=== PATIENT | female | born 1965 | race Caucasian/White ===

== ENCOUNTER 2024-01-15 13:39 | Inpatient (IN) | payer MEDICARE, OTHER ==
[~2024-01-15] VITALS: Ht 167.6 cm; Wt 139.8 kg
[2024-01-15] MEDS ORDERED: FentaNYL Citrate 50 MCG/ML 2 ML Injection IV ONE (14:30)
[2024-01-15 14:37] LABS: BASOPHILS ABSOLUTE AUTO 0.08 K/mm3 (0.00-0.23); BASOPHILS PERCENT AUTO 1 % (0-2); EOSINOPHILS PERCENT AUTO 2 % (0-6); Hematocrit 48.5 % (33.0-51.0); Hemoglobin 16.3 g/dL (11.5-16.0); IMMATURE GRAN ABSOLUTE AUTO 0.04 K/mm3 (0.00-0.10); IMMATURE GRAN PERCENT AUTO 0 % (0-1); LYMPHOCYTES ABSOLUTE AUTO 2.67 K/mm3 (0.84-5.20); LYMPHOCYTES PERCENT AUTO 26 % (21-46); MONOCYTES ABSOLUTE AUTO 0.56 K/mm3 (0.16-1.47); MONOCYTES PERCENT AUTO 6 % (4-13); Mean Corpuscular HGB 28.9 pg (26.0-34.0); Mean Corpuscular HGB Conc 33.6 g/dL (31.5-36.5); Mean Corpuscular Volume 86 fL (80-100); Mean Platelet Volume 10.1 fL (9.1-12.4); NEUTROPHILS ABSOLUTE AUTO 6.66 K/mm3 (1.96-9.15); NEUTROPHILS PERCENT AUTO 65 % (41-73); Platelet Count 294 K/mm3 (150-400); RDW Coefficient Variation 12.9 % (11.7-14.2); RDW Standard Deviation 40.2 fL (35.1-46.3); Red Blood Cell Count 5.64 M/mm3 (3.80-5.20); White Blood Cell Count 10.21 K/mm3 (4.00-11.30)
[2024-01-15 14:42] LABS: Albumin, Blood 3.8 g/dL (3.4-5.0); Albumin/Globulin Ratio 0.9 (0.8-1.8); Bilirubin, Total 0.7 mg/dL (0.1-1.0); Bun/Creatinine Ratio 8.7 (12.0-20.0); Creatinine, Blood 1.49 mg/dL (0.40-1.00); Globulin, Blood 4.2 g/dL (2.2-4.0); Potassium, Blood 4.2 mmol/L (3.5-5.5)
[2024-01-15] MEDS ORDERED: Aspirin 325 MG Tab PO ONE (15:10)
[2024-01-15] MEDS ORDERED: OxyCODONE HCL 5 MG TAB PO ONE (15:20)
[2024-01-15] MEDS ORDERED: Dose Adjust by Pharmacy XX STA ×2 (16:05→23:55)
[2024-01-15] MEDS ORDERED: Heparin Sodium,Porcine/0.5 NS 500 ML IV SCH (16:10)
[2024-01-15] MEDS ORDERED: Heparin Sodium 5000 Units/ML 1ML MDV IV ONE (16:10)
[2024-01-15 16:13] LABS: Anti-Xa UFH, PHA Monitoring <0.10 IU/mL; International Normalized Ratio 1.02; Prothrombin Time Results 10.9 Sec (9.7-11.5)
[2024-01-15] MEDS ORDERED: FLU VACC TS2024-25(6MOS UP)/PF 45 MCG/0.5 ML SYRINGE IM SCH (16:25)
[2024-01-15] MEDS ORDERED: OxyCODONE HCL 5 MG TAB PO PRN (16:30)
[2024-01-15] MEDS ORDERED: Tiotropium Bromide 2.5 MCG/ACT MIST INHAL (10 ACT/4 GM) INH SCH (16:30)
[2024-01-15] MEDS ORDERED: Acetaminophen 325 MG TABLET PO PRN (16:30)
[2024-01-15] MEDS ORDERED: Lactated Ringer's 1,000 ML IV SCH (16:35)
[2024-01-15] MEDS ORDERED: HYDROmorphone HCl/Pf 1MG SYR IV PRN (16:35)
[2024-01-15] MEDS ORDERED: Mometasone/Formoterol MDI 200/5 mcg 13 GM INH SCH (16:40)
[2024-01-15] MEDS ORDERED: Lidocaine 4% 1 Patch TOP SCH (17:00)
[2024-01-15] MEDS ORDERED: Lactated Ringer's 1,000 ML IV ONE (17:02)
[2024-01-15 18:14] VITALS: BP 134/79
--- NOTE | 2024-01-15 19:33 | NUR ---
received pt from er a/o vss with minimal c/o pain. heparin infusing to right hand IV. pt states she is a very difficult stick and doesnt want to be stuck multiple time. I will see about Powerglide placement tomorrow.
[2024-01-15 19:41] VITALS: BP 153/94
[2024-01-15] MEDS ORDERED: CloNIDine 0.1 MG Tab PO SCH (21:00)
[2024-01-15] MEDS ORDERED: BusPIRone HCl 10 MG Tab PO SCH (21:00)
--- NOTE | 2024-01-16 04:38 | NUR ---
SHIFT SUMMARY PT ALERT ORIENTED ABLE TO VERBALIZE NEEDS GETS UP AD FIDEL IN ROOM. C/O PAIN TO LT FOOT MEDICATED WITH DILAUDID AND OXYCODONE WITH GOOD RELIEF. VSS ON RA SATTING AT 95%. SHE DID HAVE A INCRESED BP AT BEGINNING OF SHIFT AT 153/94 BUT SHE TOOK HER CLONIDINE. SHE CONTINUES ON HEPARIN. HER DOSE WAS CHANGED AT 0010 TO 17U/KG/HR OR 29.9ML/HR. SHE WILL HAVE HER HEPARIN RECHECKED BY LAB AT 0630. HER LT 4 TOES REMAIN BLACK BUT COLOR IS DECREASING. SHES DO TO HAVE A ANGIO WITH IR ON WEDNESDAY. SHES SLEEPING IN BED AT THIS TIME WITH CALL LIGHT IN REACH
[2024-01-16 04:57] VITALS: BP 159/92
[2024-01-16] MEDS ORDERED: Ondansetron HCl 2 MG / ML 2ML Vial IV PRN (06:55)
[2024-01-16 07:25] LABS: BASOPHILS ABSOLUTE AUTO 0.07 K/mm3 (0.00-0.23); BASOPHILS PERCENT AUTO 1 % (0-2); EOSINOPHILS ABSOLUTE AUTO 0.43 K/mm3 (0.00-0.68); EOSINOPHILS PERCENT AUTO 5 % (0-6); Hematocrit 43.4 % (33.0-51.0); Hemoglobin 14.4 g/dL (11.5-16.0); IMMATURE GRAN ABSOLUTE AUTO 0.03 K/mm3 (0.00-0.10); IMMATURE GRAN PERCENT AUTO 0 % (0-1); LYMPHOCYTES ABSOLUTE AUTO 4.06 K/mm3 (0.84-5.20); LYMPHOCYTES PERCENT AUTO 48 % (21-46); MONOCYTES ABSOLUTE AUTO 0.53 K/mm3 (0.16-1.47); MONOCYTES PERCENT AUTO 6 % (4-13); Mean Corpuscular HGB 29.4 pg (26.0-34.0); Mean Corpuscular HGB Conc 33.2 g/dL (31.5-36.5); Mean Corpuscular Volume 89 fL (80-100); Mean Platelet Volume 10.3 fL (9.1-12.4); NEUTROPHILS ABSOLUTE AUTO 3.41 K/mm3 (1.96-9.15); NEUTROPHILS PERCENT AUTO 40 % (41-73); Platelet Count 215 K/mm3 (150-400); RDW Standard Deviation 42.2 fL (35.1-46.3); White Blood Cell Count 8.53 K/mm3 (4.00-11.30)
[2024-01-16 07:31] VITALS: BP 153/108
[2024-01-16 07:44] LABS: Albumin, Blood 3.3 g/dL (3.4-5.0); Albumin/Globulin Ratio 0.9 (0.8-1.8); Bilirubin, Total 0.5 mg/dL (0.1-1.0); Bun/Creatinine Ratio 11.2 (12.0-20.0); Calcium, Blood 9.4 mg/dL (8.5-10.1); Creatinine, Blood 1.7 mg/dL (0.40-1.00); Globulin, Blood 3.7 g/dL (2.2-4.0); Potassium, Blood 3.7 mmol/L (3.5-5.5)
[2024-01-16] MEDS ORDERED: DULoxetine HCL 30 MG Cap DR PO SCH (09:00)
[2024-01-16] MEDS ORDERED: Diltiazem HCl 180 MG Cap.CD PO SCH (09:00)
[2024-01-16 09:55] VITALS: BP 137/86
[2024-01-16] MEDS ORDERED: Heparin Sodium 5000 Units/ML 1ML MDV IV ONE (15:10)
[2024-01-16 15:11] VITALS: BP 109/53
[2024-01-16 16:25] VITALS: BP 142/86
[2024-01-16 17:32] LABS: Source, Urine Clean Catch
[2024-01-16 17:36] LABS: Bilirubin, Urine Neg (Neg); Blood, Urine 1+ (Neg); Glucose Qualitative, Urine Neg (Neg); Ketones, Urine Neg (Neg); Leukocyte Esterase, Urine 1+ (Neg); Nitrite, Urine Neg (Neg); Protein, Urine 4+ (Neg); Specific Gravity, Urine 1.025 (1.003-1.022); Urobilinogen, Urine NORM (Normal)
[2024-01-16 17:42] LABS: Appearance, Urine Hazy (Clear); Color, Urine Yellow (P-Yellow)
[2024-01-16 17:43] LABS: Red Blood Cells, Urine 0-2 /hpf (0-2); White Blood Cells, Urine 0-2 /hpf (0-5)
[2024-01-16 17:44] LABS: Bacteria Many /hpf; Hyaline Casts 0-2 /lpf (0-2); Squamous Epithelial Cells Few /hpf (Few)
[2024-01-16] MEDS ORDERED: Nicotine 21 MG PATCH TOP SCH (18:00)
[2024-01-16] MEDS ORDERED: ClonazePAM 0.5 MG Tab PO PRN (19:10)
--- NOTE | 2024-01-16 19:45 | NUR ---
SHIFT SUMMARY- PT ALERT AND ORIENTED, 1PA WITH AMBULATION OR TRANSFERS. HEPARIN DRIP INFUSING PER EMAR. PT IN BED AT THE TIME OF BEDSIDE REPORT, NIGHT RN POINTED OUT TO THE PT THE HOSPITAL IS A NO SMOKING CAMPUS AND PT ARE NOT ALLOWED TO GO OUT AND SMOKE. THE PT BECAME VERY ANXIOUS AND LASHED OUTVERBALLY AT THE RN STATING SHE WILL "LEAVE THIS PLACE" AND SHE WILL NOT STAND FOR BEING "THREATENED." SHE WAS FURIOUS AND SHAKING (NICOTIENE PATCH ALREADY IN PLACE) PT GRABBED HER PHONE AND SAID I'LL CALL MY FOR MY CLONAZEPAM NOW. THIS RN CLARIFIED THE ORDER SHE TAKES AND CALLED DR BELCHER. EXPLAINED THE ANXIETY THE PT IS HAVING AND THE MED SHE HAS A Hx OF FILLING AT THE PHARMACY. (PER THE MED CLAIM Hx) RECIEVED AN ORDER FOR THE MED AND PLACED IN ORDER MANAGEMENT. ONCE VERIFIED, SPOKE TO THE PT. SHE APPOLOGIZED FOR THE MISCOMMUNICATION AND STATES SHE DOES NOT NEED THE MEDICATION AT THIS TIME. PRN IS AVAILABLE IF NEEDED LATER. PT SITTING UP IN BED, SMILING AND VISITING WITH THE NIGHT RN. NO CURRENT S&S OF DISTRESS NOTED.
[2024-01-16 20:27] VITALS: BP 160/79
[2024-01-17 01:39] VITALS: BP 147/77
[2024-01-17 03:54] LABS: BASOPHILS ABSOLUTE AUTO 0.05 K/mm3 (0.00-0.23); BASOPHILS PERCENT AUTO 1 % (0-2); EOSINOPHILS ABSOLUTE AUTO 0.36 K/mm3 (0.00-0.68); EOSINOPHILS PERCENT AUTO 5 % (0-6); Hematocrit 37.2 % (33.0-51.0); IMMATURE GRAN ABSOLUTE AUTO 0.01 K/mm3 (0.00-0.10); IMMATURE GRAN PERCENT AUTO 0 % (0-1); LYMPHOCYTES ABSOLUTE AUTO 3.25 K/mm3 (0.84-5.20); LYMPHOCYTES PERCENT AUTO 45 % (21-46); MONOCYTES ABSOLUTE AUTO 0.44 K/mm3 (0.16-1.47); MONOCYTES PERCENT AUTO 6 % (4-13); Mean Corpuscular HGB 29.3 pg (26.0-34.0); Mean Corpuscular HGB Conc 32.3 g/dL (31.5-36.5); Mean Corpuscular Volume 91 fL (80-100); Mean Platelet Volume 10.5 fL (9.1-12.4); NEUTROPHILS ABSOLUTE AUTO 3.06 K/mm3 (1.96-9.15); NEUTROPHILS PERCENT AUTO 43 % (41-73); Platelet Count 171 K/mm3 (150-400); RDW Coefficient Variation 12.9 % (11.7-14.2); RDW Standard Deviation 42.6 fL (35.1-46.3); Red Blood Cell Count 4.09 M/mm3 (3.80-5.20); White Blood Cell Count 7.17 K/mm3 (4.00-11.30)
[2024-01-17 04:24] LABS: Anion Gap 9 mmol/L (3-11); Blood Urea Nitrogen 33 mg/dL (8-24); Bun/Creatinine Ratio 13.6 (12.0-20.0); CO2, Blood 26 mmol/L (21-32); Calcium, Blood 8.8 mg/dL (8.5-10.1); Chloride, Blood 107 mmol/L (98-108); Creatinine, Blood 2.43 mg/dL (0.40-1.00); Glomerular Filtration Rate 23 (60-); Glucose, Blood 95 mg/dL (70-99); Phosphorus, Blood 6.6 mg/dL (2.5-4.9); Potassium, Blood 4.3 mmol/L (3.5-5.5); Sodium, Blood 138 mmol/L (136-145)
[2024-01-17] MEDS ORDERED: Dose Adjust by Pharmacy XX STA (04:51)
[2024-01-17 07:30] VITALS: BP 147/64
--- NOTE | 2024-01-17 08:18 | NUR ---
NOTE: SP0KE WITH DR. BELCHER, OKAY TO GIVE ALL OF PT'S AM MEDICATIONS PENDING ANGIOGRAM TODAY. PT IS NPO FOR THE PROCEDURE.
[2024-01-17] MEDS ORDERED: Sevelamer Carbonate 800 MG Tab PO SCH (08:30)
--- NOTE | 2024-01-17 11:16 | NUR ---
NOTE: NOTIFIED BY [facility] PT IS NOT TO HAVE ANGIOGRAM TODAY DUE TO CREATININE LEVEL. PT NOTIFIED, [facility] STATED OKAY TO EAT. FOOD PROVIDED.
[2024-01-17] MEDS ORDERED: NS 1,000 ML IV SCH (14:00)
[2024-01-17] MEDS ORDERED: DILT30 PO (15:10)
[2024-01-17 15:12] VITALS: BP 118/72
[2024-01-17] MEDS ORDERED: ALBU90OI INH (15:26)
[2024-01-17] MEDS ORDERED: METO50ER PO (15:27)
[2024-01-17] MEDS ORDERED: CLON.5 PO (15:28)
[2024-01-17] MEDS ORDERED: Buspirone HCl15 MG PO (15:29)
[2024-01-17] MEDS ORDERED: WIXELA 500-501 EAC1 INH (15:29)
[2024-01-17] MEDS ORDERED: CATAPRES0.1 MG PO (15:29)
[2024-01-17] MEDS ORDERED: LOSA50 PO (15:30)
[2024-01-17] MEDS ORDERED: PRAM.125 PO (15:32)
[2024-01-17] MEDS ORDERED: Desyrel150 MG PO (15:32)
[2024-01-17] MEDS ORDERED: OMEP20ER PO (15:32)
--- NOTE | 2024-01-17 18:06 | NUR ---
SHIFT SUMMARY PT AOX4, INDEPENDENT IN THE ROOM. NO CHANGES TO HEPARIN DRIP THIS SHIFT. PT CALLS AND MAKES HER NEEDS KNOWN. MEDICATED FOR PAIN, NAUSEA, AND ANXIETY PER THE EMAR. NEPHROLOGY CONSULTED THIS SHIFT. ANGIOGRAM DELAYED DUE TO PT'S CREATININE LEVEL. WILL RECHECK THIS EVENIN. PT REPOSITIONS SELF IN BED. CALL LIGHT WITHIN REACH, BED LOCKED AND IN THE LOWEST POSITION. WILL REPORT TO ONCOMING NURSE.
[2024-01-17 19:06] VITALS: BP 133/76
[2024-01-17 19:26] LABS: Albumin, Blood 3.1 g/dL (3.4-5.0); Bilirubin, Total 0.2 mg/dL (0.1-1.0); Bun/Creatinine Ratio 13.2 (12.0-20.0); Calcium, Blood 8.8 mg/dL (8.5-10.1); Creatinine, Blood 2.28 mg/dL (0.40-1.00); Globulin, Blood 3.2 g/dL (2.2-4.0); Potassium, Blood 4.2 mmol/L (3.5-5.5); Total Protein, Blood 6.3 g/dL (6.4-8.2)
[2024-01-17] MEDS ORDERED: N-Acetylcysteine 600 MG CAP PO SCH (21:00)
[2024-01-18 01:23] VITALS: BP 125/74
[2024-01-18 03:17] LABS: BASOPHILS ABSOLUTE AUTO 0.06 K/mm3 (0.00-0.23); BASOPHILS PERCENT AUTO 1 % (0-2); EOSINOPHILS ABSOLUTE AUTO 0.37 K/mm3 (0.00-0.68); EOSINOPHILS PERCENT AUTO 5 % (0-6); Hematocrit 34.9 % (33.0-51.0); Hemoglobin 11.3 g/dL (11.5-16.0); IMMATURE GRAN ABSOLUTE AUTO 0.02 K/mm3 (0.00-0.10); IMMATURE GRAN PERCENT AUTO 0 % (0-1); LYMPHOCYTES ABSOLUTE AUTO 2.71 K/mm3 (0.84-5.20); LYMPHOCYTES PERCENT AUTO 37 % (21-46); MONOCYTES ABSOLUTE AUTO 0.49 K/mm3 (0.16-1.47); MONOCYTES PERCENT AUTO 7 % (4-13); Mean Corpuscular HGB 29.5 pg (26.0-34.0); Mean Corpuscular HGB Conc 32.4 g/dL (31.5-36.5); Mean Corpuscular Volume 91 fL (80-100); Mean Platelet Volume 10.1 fL (9.1-12.4); NEUTROPHILS ABSOLUTE AUTO 3.76 K/mm3 (1.96-9.15); NEUTROPHILS PERCENT AUTO 51 % (41-73); Platelet Count 167 K/mm3 (150-400); RDW Coefficient Variation 13.2 % (11.7-14.2); RDW Standard Deviation 43.6 fL (35.1-46.3); Red Blood Cell Count 3.83 M/mm3 (3.80-5.20); White Blood Cell Count 7.41 K/mm3 (4.00-11.30)
[2024-01-18 03:36] LABS: Albumin, Blood 3.1 g/dL (3.4-5.0); Anion Gap 11 mmol/L (3-11); Blood Urea Nitrogen 33 mg/dL (8-24); Bun/Creatinine Ratio 13.4 (12.0-20.0); CO2, Blood 24 mmol/L (21-32); Calcium, Blood 8.4 mg/dL (8.5-10.1); Chloride, Blood 107 mmol/L (98-108); Creatinine, Blood 2.47 mg/dL (0.40-1.00); Glomerular Filtration Rate 22 (60-); Glucose, Blood 89 mg/dL (70-99); Magnesium, Blood 1.8 mg/dL (1.6-2.4); Phosphorus, Blood 5.4 mg/dL (2.5-4.9); Potassium, Blood 4.5 mmol/L (3.5-5.5); Sodium, Blood 137 mmol/L (136-145)
[2024-01-18] MEDS ORDERED: Dose Adjust by Pharmacy XX STA (04:12)
--- NOTE | 2024-01-18 05:12 | NUR ---
SHIFT SUMMARY. PATIENT IS A&OX4. PATIENT CALLS APPROPRIATELY AND IS ABLE TO MAKE HER NEEDS KNOWN. PATIENT INDEPENDENT TO THE BATHROOM. PATIENTS LEFT FOOT ELEVATED T/O NIGHT. PATIENT IS ABLE TO REPOSITION SELF IN BED. PATIENT C/O PAIN-MEDICATED FOR PAIN PER ORDERS-SEE EMAR. PATIENT POSSIBLE ANGIO DONE TODAY PENDING LABS. BED IS LOCKED IN THE LOWEST POSITION c CALL LIGHT IN REACH. CARE IS ONGOING.
[2024-01-18] MEDS ORDERED: NS 1,000 ML IV SCH (05:30)
--- NOTE | 2024-01-18 06:30 | NUR ---
IN AT BEDSIDE-ORDERED FOR STAT CREATININE TO BE DONE AT NOON AND RESULTS CALLED BACK TO BY 1PM. DR. KILPATRICK CHANGED PATIENTS DIET FROM RENAL TO REGULAR.
[2024-01-18 07:10] VITALS: BP 117/80
[2024-01-18] MEDS ORDERED: Polyethylene Glycol 3350 17 gm PO PRN (10:15)
[2024-01-18 13:57] VITALS: BP 114/57
[2024-01-18] MEDS ORDERED: CYMBALTA60 M1 PO (15:59)
[2024-01-18] MEDS ORDERED: ALPR.25 PO (16:08)
--- NOTE | 2024-01-18 17:55 | NUR ---
SHIFT SUMMARY PT AOX4, INDEPENDENT IN THE ROOM. HEPARIN DRIP AND NS INFUSING. NO CHANGES TO HEPARIN DRIP THIS SHIFT. PT CALLS AND MAKES HER NEEDS KNOWN. MEDICATED FOR NAUSEA AND PAIN PER THE EMAR. NO ANGIOGRAM TODAY DUE TO ELEVATED CREATININE LEVEL, DR. KILPATRICK IS CONSULTING. PT REPOSITIONS SELF IN BED. NO ACUTE ISSUES THIS SHIFT. CALL LIGHT WITHIN REACH, BED LOCKED AND IN THE LOWEST POSITION. WILL REPORT TO ONCOMING NURSE.
[2024-01-18 19:47] VITALS: BP 97/50
[2024-01-18] MEDS ORDERED: Arginine/Glutamine/Calcium Hmb 1 Packet PO SCH (21:00)
[2024-01-19] VITALS (9 sets, daily range): BP systolic 105–177; BP diastolic 55–114
[2024-01-19 05:28] LABS: Hematocrit 34.8 % (33.0-51.0)
[2024-01-19 05:52] LABS: Albumin, Blood 3.1 g/dL (3.4-5.0); Anion Gap 10 mmol/L (3-11); Blood Urea Nitrogen 37 mg/dL (8-24); Bun/Creatinine Ratio 16.6 (12.0-20.0); CO2, Blood 23 mmol/L (21-32); Chloride, Blood 109 mmol/L (98-108); Creatinine, Blood 2.23 mg/dL (0.40-1.00); Glomerular Filtration Rate 25 (60-); Glucose, Blood 83 mg/dL (70-99); Magnesium, Blood 2.3 mg/dL (1.6-2.4); Phosphorus, Blood 5.1 mg/dL (2.5-4.9); Potassium, Blood 4.9 mmol/L (3.5-5.5); Sodium, Blood 137 mmol/L (136-145)
--- NOTE | 2024-01-19 06:08 | NUR ---
SHIFT SUMMARY. NO ACUTE CHANGES NOTED THIS SHIFT. PATIENT IS A&OX4 AND INDEPENDENT IN ROOM. PATIENT CALLS APPROPRIATELY AND IS ABLE TO MAKE HER NEEDS KNOWN. PATIENT C/O PAIN AND NAUSEA THIS SHIFT-MEDICATED PER ORDERS; SEE EMAR. PATIENT ABLE TO GET SOME REST THIS SHIFT. DR. KILPATRICK CONSULTED AND IS TRENDING PATIENTS RENAL FUNCTION. PATIENT IS PENDING AN ANGIOGRAM D/T INCREASED CREATININE LEVELS-PATIENT WILL NEED CLEARED FROM NEPHROLOGY PRIOR TO TEST. BED IS LOCKED IN THE LOWEST POSITION WITH CALL LIGHT IN REACH. CARE IS ONGOING.
[2024-01-19] MEDS ORDERED: NS 250 ML IV ONE (08:34)
[2024-01-19] MEDS ORDERED: NS 100 ML IV ONE ×2 (08:34→11:53)
[2024-01-19] MEDS ORDERED: Heparin Sodium 1000 Units/ML 10ML MDV ONE ×2 (08:38→10:01)
[2024-01-19] MEDS ORDERED: Metoclopramide HCl 5MG / ML 2ML Vial IV ONE (09:35)
[2024-01-19] MEDS ORDERED: FentaNYL Citrate 50 MCG/ML 2 ML Injection ONE ×2 (09:46→10:16)
[2024-01-19] MEDS ORDERED: NS 1,000 ML IV ONE (09:46)
[2024-01-19] MEDS ORDERED: Midazolam HCl 1MG / ML 2ML Vial ONE ×4 (09:46→11:27)
--- NOTE | 2024-01-19 10:04 | NUR ---
PATEINT TO SURGERY, TO BE ADMITTED TO A DOFFERENT ROOM FOR POST CARE, IN ROOM WIAIT FOR PATIENT
[2024-01-19] MEDS ORDERED: HydrALAZINE HCl 20 MG / ML 1ML Vial ONE (11:41)
[2024-01-19] MEDS ORDERED: NS 500 ML IV ONE (12:06)
[2024-01-19] MEDS ORDERED: Labetalol HCL 5 MG/ML 4ML Injection (Single Dose) ONE (12:27)
[2024-01-19] MEDS ORDERED: Protamine Sulfate 50 MG Amp ONE (12:31)
[2024-01-19] MEDS ORDERED: Clopidogrel Bisulfate 300 MG Cap PO STA (13:06)
[2024-01-19] MEDS ORDERED: Aspirin 325 MG Tab ONE (13:21)
[2024-01-19] MEDS ORDERED: Clopidogrel Bisulfate 300 MG Cap ONE (13:21)
--- NOTE | 2024-01-19 17:20 | NUR ---
PATIENT TRANSFERRED TO ROOM PCU 15, BEDSIDE REPORT TO BELT PICKER
--- NOTE | 2024-01-19 18:44 | NUR ---
SHIFT NOTE PT RECOVERED WELL. NO OOZING OR HEMATOMAS NOTED AT GROIN SITES. L TOES STILL DUSKY AND PAINFUL. PT ABLE TO AMBULATE TO BATHROOM. AT BEDSIDE AND UPDATED ON PLAN OF CARE
[2024-01-20] VITALS (8 sets, daily range): BP systolic 123–160; BP diastolic 64–83
[2024-01-20 05:32] LABS: Hematocrit 34.2 % (33.0-51.0); Mean Corpuscular HGB 28.9 pg (26.0-34.0); Mean Corpuscular HGB Conc 32.2 g/dL (31.5-36.5); Mean Corpuscular Volume 90 fL (80-100); Mean Platelet Volume 10.5 fL (9.1-12.4); Platelet Count 173 K/mm3 (150-400); RDW Coefficient Variation 13.5 % (11.7-14.2); RDW Standard Deviation 44.6 fL (35.1-46.3); White Blood Cell Count 7.94 K/mm3 (4.00-11.30)
[2024-01-20 06:00] LABS: Albumin, Blood 2.9 g/dL (3.4-5.0); Anion Gap 11 mmol/L (3-11); Blood Urea Nitrogen 28 mg/dL (8-24); Bun/Creatinine Ratio 16.5 (12.0-20.0); CO2, Blood 22 mmol/L (21-32); Calcium, Blood 9.5 mg/dL (8.5-10.1); Chloride, Blood 113 mmol/L (98-108); Glomerular Filtration Rate 35 (60-); Glucose, Blood 95 mg/dL (70-99); Magnesium, Blood 2.2 mg/dL (1.6-2.4); Phosphorus, Blood 3.2 mg/dL (2.5-4.9); Potassium, Blood 4.5 mmol/L (3.5-5.5); Sodium, Blood 141 mmol/L (136-145)
--- NOTE | 2024-01-20 06:11 | NUR ---
SHIFT SUMMARY PATIENT ALERT AND ORIENTED X4, INDEPENDENT TO THE RESTROOM. BOTH GROIN SITES ARE FREE OF SWELLING AND BRUSING. PATIENT MEDICATED PER EMAR FOR PAIN OF THE LEFT 4TH TOE. ON ROOM AIR WITH SPO2 >90%. VITAL SIGNS STABLE, SINUS RYTHM ON TELE. NO ACUTE ISSUES NOTED OVERNIGHT. WILL CONTINUE TO MONITOR. CALL LIGHTI WITHIN REACH.
[2024-01-20] MEDS ORDERED: Aspirin 81 MG Chew PO SCH (09:00)
[2024-01-20] MEDS ORDERED: Clopidogrel Bisulfate 75 MG Tab PO SCH (09:00)
[2024-01-20] MEDS ORDERED: NS 1,000 ML IV SCH (14:10)
--- NOTE | 2024-01-20 17:14 | NUR ---
Shift Summary Pt alert, oriented x4; calm and cooperative with care. Pt resting in bed for majority of shift, up sba in room, up to bathroom. Pt reports pain to left foot/toes, medicated per emar. Pt denies chest pain/pressure, sob, nausea, dizziness and numb/tingling. This am tele sinus, bp elevated. Spo2 >90% on ra, breathing even and unlabored. Abd soft, nontender, +bt t/o. Strong pulse to left foot, 4th toe continue to be purple and painful, other toes pink. Other vss. No other acute changes noted. Will continue to monitor.
--- NOTE | 2024-01-20 23:46 | NUR ---
ASSUMPTION OF CARE AND TRANSFER NOTE ASSUMED CARE OF PT AT 1900. PT IS A/OX4. HEART SOUNDS REGULAR. LUNG SOUNDS CLEAR. PT ON RA. PT REPORTS KNOWN DESATURATION WHEN SLEEPING DUE TO HX OF PULM FIBROSIS. PT IS A 1P SBA WITH WALKER. PT REPORTS PAIN IN L FOURTH TOE. TOE IS PUPLE IN COLOR. PODIATRY SAW PT AT SHIFT CHANGE. PT TOLD THIS NURSE HE THOUGHT HER TOE WOULD BE OK BUT THE TIP MIGHT FALL OFF. PT MEDICATED FOR PAIN PER EMAR. REPORT GIVEN TO AMNA WISE. PT TOLERATED MOVE WELL. TRANSFERED VIA WHEELCHAIR.
--- NOTE | 2024-01-21 00:52 | NUR ---
PT TRANSFERRED FROM PACU TO ROOM 342. PT ARRIVED IN A W/C. ALERT ORIENTED X 4. C/O ANXIETY MEDICATED WITH KLONOPIN C/O LT FOOT PAIN MEDICATED WITH OXY WITH GOOD PAIN RELIEF.SKIN CHECK DONE WITH AMNA HER LT 4TH TOE REMAINS PURPLE IN COLOR NO OTHER SKIN CONCERNS. VSS ON RA. REQUIRES 1 PERSON SBA FOR TRANSFERS. REMAINS ON NS AT 100. PT WAS ORIENTED TO ROOM AND STAFF. SHES RESTING IN BED AT THIS TIME WITH CALL LIGHT IN REACH
[2024-01-21 02:56] VITALS: BP 119/69
--- NOTE | 2024-01-21 03:54 | NUR ---
SHIFT SUMMARY PT WAS TRANSFERRED TO HERE FROM PCU LAST NIGHT. ALERT ORIENTED X 4 REQUIRES SBA TO GET UP TO THE BATHROOM. C/O LT FOOT PAIN MEDICATED WITH OXY AND DILAUDID WITH GOOD PAIN RELIEF. SHE HAS A POWER GLIDE TO HER LT UPPER ARM WITH NS AT 50. THERES A CONSULT IN FOR BRUCE FOR HER LT 1ST TOE. HER LT 1ST AND 4TH TOE REMAINS DARKENED BUT THE COLOR IS GETTING BETTER. SHE HAS GOOD PEDAL PULSES TO BILATERAL FEET. SHES DUE TO HAVE LABS DONE THIS AM. SHES RESTING IN BED AT THIS TIME WITH CALL LIGHT IN REACH
[2024-01-21 06:07] LABS: Hematocrit 30.4 % (33.0-51.0); Hemoglobin 9.7 g/dL (11.5-16.0)
--- NOTE | 2024-01-21 06:10 | NUR ---
Dr. Fairbanks came in to see the pt and stated that he wants to see her in the office next wednesday at 2pm.he also gave orders to stop the iv fluids and stop the aranesp
[2024-01-21 06:40] LABS: Albumin, Blood 2.8 g/dL (3.4-5.0); Anion Gap 10 mmol/L (3-11); Blood Urea Nitrogen 25 mg/dL (8-24); Bun/Creatinine Ratio 15.5 (12.0-20.0); CO2, Blood 24 mmol/L (21-32); Calcium, Blood 8.9 mg/dL (8.5-10.1); Chloride, Blood 111 mmol/L (98-108); Creatinine, Blood 1.61 mg/dL (0.40-1.00); Glomerular Filtration Rate 37 (60-); Glucose, Blood 98 mg/dL (70-99); Phosphorus, Blood 3.8 mg/dL (2.5-4.9); Potassium, Blood 4.2 mmol/L (3.5-5.5); Sodium, Blood 141 mmol/L (136-145)
[2024-01-21 07:36] VITALS: BP 113/101
[2024-01-21 07:39] VITALS: BP 138/81
[2024-01-21] MEDS ORDERED: JUVEN PACKET1 EAC3 PO (11:35)
[2024-01-21] MEDS ORDERED: Aspir 8181 MG PO (11:35)
[2024-01-21] MEDS ORDERED: CLOP75 PO (11:36)
[2024-01-21] MEDS ORDERED: LIDOCAINE1 EAC1 TOP (11:36)
[2024-01-21] MEDS ORDERED: MIRALAX17 GM PO (11:36)
[2024-01-21] MEDS ORDERED: PANT20 PO (11:37)
[2024-01-21] MEDS ORDERED: Percocet 5-3251 EACH PO (11:37)
[2024-01-21] MEDS ORDERED: TIOT18 INH (11:37)
--- NOTE | 2024-01-21 18:28 | NUR ---
DISCHARGE SUMMARY: PT DISCHARGED HOME TODAY. PT EDUCATED ON DISCHARGE PLAN, MEDICATIONS AND FOLLOW-UP INSTRUCTIONS WITH PROVIDERS. PT V/U. SPOUSE IN ROOM AND ASSISTED PT WITH GETTING DRESSED. PT/SPOUSE PACKED UP BELONGINGS. PT GIVEN LIST OF LOCAL PROVIDERS TO ESTABLISH CARE WITH. PT SENT WITH SOME WOUND CARE SUPPLIES, GAUZE AND WOUND CLEANSER TO CLEANSE LEFT TOES. PT ESCORTED TO PO WITH HER BELONGING.
== END 2024-01-21 12:17 | disposition home or self-care (01) | DRG 279 ==
LOC: ER 13:39 → MEDS 16:22 → PCU 16:22 → MEDS 17:39 → PCU 01-19 13:30 → MEDS 01-20 23:33 → ENPENDDIS 01-21 10:06 → MEDS 01-21 12:17
PROVIDERS: Emergency Medicine; Internal Medicine; Internal Medicine Nephrology; Student in an Organized Health Care Education/Training Program; ADMIT Family Medicine
PROC: 04FD3ZZ Fragmentation of Left Common Iliac Artery, Percutaneous Approach (ICD-10-PCS; principal; 2024-01-19)
PROC: 04FJ3ZZ Fragmentation of Left External Iliac Artery, Percutaneous Approach (ICD-10-PCS; 2024-01-19)
PROC: 047J3DZ Dilation of Left External Iliac Artery with Intraluminal Device, Percutaneous Approach (ICD-10-PCS; 2024-01-19)
PROC: 047D3DZ Dilation of Left Common Iliac Artery with Intraluminal Device, Percutaneous Approach (ICD-10-PCS; 2024-01-19)
PROC: B41G1ZZ Fluoroscopy of Left Lower Extremity Arteries using Low Osmolar Contrast (ICD-10-PCS; 2024-01-19)
DX: I70.262 Atherosclerosis of native arteries of extremities with gangrene, left leg (principal); I13.0 Hypertensive heart and chronic kidney disease with heart failure and stage 1 through stage 4 chronic kidney disease, or unspecified chronic kidney disease; N17.9 Acute kidney failure, unspecified; J44.9 Chronic obstructive pulmonary disease, unspecified; J84.10 Pulmonary fibrosis, unspecified; F41.9 Anxiety disorder, unspecified; K21.9 Gastro-esophageal reflux disease without esophagitis; G25.81 Restless legs syndrome; I50.9 Heart failure, unspecified; N18.9 Chronic kidney disease, unspecified; Z79.899 Other long term (current) drug therapy; Z88.8 Allergy status to other drugs, medicaments and biological substances; E83.39 Other disorders of phosphorus metabolism; E88.09 Other disorders of plasma-protein metabolism, not elsewhere classified
CPT/HCPCS: 36415; 74176; 76770; 76937; 80053; 80069; 81001; 82550; 82565; 82570; 83735; 83880; 84300; 85014; 85018; 85025; 85027; 85347; 85520; 85610; 85730; 87086; 93926; 94640; 94664; 94760; 94762; 96374; 99152; 99153; 99284-25; A9270; C1725; C1751; C1753; C1760; C1769; C1874; C1887; C1894; J0360; J1171; J1644; J2250; J2405; J2720; J2765; J3010; J7030; J7040; J7050; J7120; Q9967